=== PATIENT | male | born 1990 | race African-American/Black ===

== ENCOUNTER 2018-06-15 10:27 | Emergency (ER) | payer OTHER ==
--- NOTE | 2018-06-15 11:02 | ER Document Report ---
ED Medical Screen (RME) - General Chief Complaint: Abdominal Pain Stated Complaint: ABDOMINAL PAIN Time Seen by Provider: 06/15/18 10:59 Mode of Arrival: Medic Information source: Patient Notes: 28-year-old male presents to ED for complaint of abdominal pain since Friday he said his worst pain is in the right lower quadrant. He states he was very constipated on Friday he took some mag citrate on Friday because he only had some little hard round balls. States he had several stools yesterday but his pain is still getting worse. Abdomen is soft with very hyperactive bowel sounds throughout. Patient states he has a history of GERD he smokes a half a pack a day does not drink and does not use drugs. I have greeted and performed a rapid initial assessment of this patient. A comprehensive ED assessment and evaluation of the patient, analysis of test results and completion of medical decision making process will be conducted by an additional ED providers. TRAVEL OUTSIDE OF THE [place] IN LAST 30 DAYS: No - Related Data Allergies/Adverse Reactions: Penicillins Allergy (Verified 06/15/18 10:29) Past Medical History - Social History Chew tobacco use (# tins/day): No Frequency of alcohol use: None Drug Abuse: None Renal/ Medical History: Denies: Hx Peritoneal Dialysis GI Medical History: Reports: Hx Gastroesophageal Reflux Disease Physical Exam - Vital signs Vitals: Temp Pulse Resp BP Pulse Ox 98.6 F 98 16 134/89 H 97 06/15/18 10:31 06/15/18 10:31 06/15/18 10:31 06/15/18 10:31 06/15/18 10:31 Course - Vital Signs Vital signs: Temp Pulse Resp BP Pulse Ox 98.6 F 98 16 134/89 H 97 06/15/18 10:31 06/15/18 10:31 06/15/18 10:31 06/15/18 10:31 06/15/18 10:31
[2018-06-15 11:53] LABS: ABSOLUTE EOSINOPHILS # (AUTO) 0.4 10^3/uL (0.0-0.6); ABSOLUTE LYMPHOCYTES (AUTO) 1.8 10^3/uL (0.5-4.7); ABSOLUTE MONOCYTES (AUTO) 0.9 10^3/uL (0.1-1.4); ABSOLUTE NEUT (AUTO) 3.6 10^3/uL (1.7-8.2); BASOPHILS % (AUTO) 0.4 % (0-2); EOSINOPHILS % (AUTO) 5.4 % (0-6); HEMATOCRIT 46.4 % (37.9-51.0); HEMOGLOBIN 15.5 g/dL (13.5-17.0); MEAN CORPUSCULAR HEMOGLOBIN 27.2 pg (27.0-33.4); MEAN CORPUSCULAR HGB CONC 33.3 g/dL (32.0-36.0); MEAN CORPUSCULAR VOLUME 82 fl (80-97); MONOCYTES % (AUTO) 12.7 % (3-13); PLATELET COUNT 139 10^3/uL (150-450); RED BLOOD COUNT 5.67 10^6/uL (4.35-5.55); RED CELL DISTRIBUTION WIDTH 15.6 % (11.5-14.0); SEGMENTED NEUTROPHILS % (AUTO) 54.5 % (42-78); TOTAL CELLS COUNTED % (AUTO) 100 %; WHITE BLOOD COUNT 6.7 10^3/uL (4.0-10.5)
[2018-06-15 11:55] LABS: APPEARANCE,URINE CLEAR; BILIRUBIN,URINE NEGATIVE (NEGATIVE); COLOR,URINE YELLOW; GLUCOSE, URINE NEGATIVE (NEGATIVE); KETONES,URINE NEGATIVE (NEGATIVE); LEUKOCYTE ESTERASE,URINE NEGATIVE (NEGATIVE); NITRITE,URINE NEGATIVE (NEGATIVE); PROTEIN,URINE NEGATIVE (NEGATIVE); URINE SPECIFIC GRAVITY 1.013; UROBILINOGEN,URINE NEGATIVE mg/dL (<2.0)
[2018-06-15 12:14] LABS: ALANINE AMINOTRANSFERASE 129 U/L (21-72); ALBUMIN 4.1 g/dL (3.5-5.0); ALKALINE PHOSPHATASE 97 U/L (38-126); ANION GAP 7 (5-19); ASPARTATE AMINO TRANSFERASE 93 U/L (17-59); BILIRUBIN,DIRECT 0.3 mg/dL (0.0-0.4); BILIRUBIN,TOTAL 0.7 mg/dL (0.2-1.3); BLOOD UREA NITROGEN 8 mg/dL (7-20); CALCIUM 9.5 mg/dL (8.4-10.2); CARBON DIOXIDE 31 mmol/L (22-30); CHLORIDE 105 mmol/L (98-107); GLUCOSE 89 mg/dL (75-110); POTASSIUM 4.5 mmol/L (3.6-5.0); SODIUM 142.6 mmol/L (137-145); TOTAL PROTEIN 7.6 g/dL (6.3-8.2)
--- NOTE | 2018-06-15 12:16 | RADIOLOGY REPORT (SQ) ---
EXAM DESCRIPTION: ACUTE ABDOMEN SERIES COMPLETED DATE/TIME: 06/15/2018 11:58 am REASON FOR STUDY: Generalized abdominal pain with worse pain and rig COMPARISON: None. NUMBER OF VIEWS: Three views. TECHNIQUE: Frontal chest, supine abdomen and upright abdomen radiographic images acquired. LIMITATIONS: None. FINDINGS: CHEST: Lungs clear of infiltrates. Cardiac silhouette size, francisco unremarkable. No pleura l effusions. No pneumothorax. FREE AIR: None. No abnormal gas collections. BOWEL GAS PATTERN: Abnormal bowel gas pattern with air-fluid levels in mildly dilated mid epigastric small bowel loops. This could indicate early ileus or obstruction. Lacey loops from pancreatitis is possible CALCIFICATIONS: No suspicious calcifications. HARDWARE: None in the abdomen. SOFT TISSUES: No gross mass or suggestion of organomegaly. BONES: No acute fracture. No worrisome bone lesions. OTHER: No other significant finding. IMPRESSION: Abnormal but nonspecific bowel gas pattern with mildly dilated small bowel loops in the mid epigastrium with air-fluid levels. TECHNICAL DOCUMENTATION: JOB ID: [id number] [employer]- All Rights Reserved Reading location - IP/workstation name: [email or web address]
--- NOTE | 2018-06-15 12:52 | ER Document Report ---
ED General - General Chief Complaint: Abdominal Pain Stated Complaint: ABDOMINAL PAIN Time Seen by Provider: 06/15/18 10:59 Mode of Arrival: Medic TRAVEL OUTSIDE OF THE [place] IN LAST 30 DAYS: No - HPI Notes: Patient is a 28-year-old male with no significant past medical history aside from GERD who presents to the ED complaining of right lower quadrant abdominal pain times 4 days that has been relatively constant. Patient states that the pain originated in his mid abdomen and was radiating around his right side earlier on. Patient states that the pain no longer radiates. Patient states that he does feel constipated and has only had small amount of stool with each bowel movement with the last one being this morning. Patient states that he is able to eat and drink, but does have a decreased p.o. intake. He is urinating normally. Pt has had an occ cough over the last week. Denies any headache, fever, neck pain, URI, sore throat, chest pain, palpitations, syncope, shortness of breath, wheeze, dyspnea, nausea/vomiting/diarrhea, urinary retention, dysuria, hematuria, back pain, loss of control of bowel or bladder, numbness/tingling, saddle anesthesia, muscle paralysis/weakness, or rash. - Related Data Allergies/Adverse Reactions: Penicillins Allergy (Verified 06/15/18 10:29) Past Medical History - General Information source: Patient - Social History Smoking Status: Current Every Day Smoker Chew tobacco use (# tins/day): No Frequency of alcohol use: None Drug Abuse: None Family History: Reviewed & Not Pertinent Patient has suicidal ideation: No Patient has homicidal ideation: No Renal/ Medical History: Denies: Hx Peritoneal Dialysis GI Medical History: Reports: Hx Gastroesophageal Reflux Disease Review of Systems - Review of Systems -: Yes All other systems reviewed and negative Physical Exam - Vital signs Vitals: Temp Pulse Resp BP Pulse Ox 98.6 F 98 16 134/89 H 97 06/15/18 10:31 06/15/18 10:31 06/15/18 10:31 06/15/18 10:31 06/15/18 10:31 - Notes Notes: PHYSICAL EXAMINATION: GENERAL: Well-appearing, well-nourished and in no acute distress. HEAD: Atraumatic, normocephalic. EYES: Pupils equal round and reactive to light, extraocular movements intact, sclera anicteric, conjunctiva are normal. ENT: Nares patent and without discharge. oropharynx clear without exudates. No tonsilar hypertrophy or erythema. Moist mucous membranes. NECK: Normal range of motion, supple without lymphadenopathy LUNGS: Scant crackle RLL. HEART: Regular rate and rhythm without murmurs, rubs, gallops. ABDOMEN: Soft, nondistended abdomen. No guarding, no rebound. Normal bowel sounds present. No CVA tenderness bilaterally. + tenderness to the RLQ. Dudley neg. Musculoskeletal: FROM to passive/active. Strength 5+/5. Extremities: No cyanosis, clubbing, or edema b/l. Peripheral pulses 2+. Capillary refill less than 3 seconds. NEUROLOGICAL: Normal speech, normal gait. PSYCH: Normal mood, normal affect. SKIN: Warm, Dry, normal turgor, no rashes or lesions noted. Course - Re-evaluation Re-evalutation: 06/15/18 13:18 Patient is an afebrile, well-hydrated, 28-year-old male who presents to the ED with a right lower lobe pneumonia as well as abdominal pain unspecified but I suspect to be related with constipation. Vitals are acceptable without any significant tachycardia, tachypnea, or hypoxia. PE is otherwise unremarkable. Patient is nontoxic-appearing and is tolerating p.o. without difficulty. Appendicitis observation reviewed. CBC and CMP otherwise unremarkable aside from being a little dry. See CT scan result. Patient was given fluids. No further labs or imaging warranted at this time. Low suspicion/risk for acute appendicitis, bowel obstruction, acute cholecystitis, perforated diverticulitis, incarcerated hernia, pancreatitis, perforated ulcer, peritonitis, sepsis, testicular torsion, or other systemic emergent condition at this time. Patient is aware that his condition can change from initial presentation and he needs to monitor symptoms closely and seek medical attention if any acute changes. I will send him home with a prescription for mag citrate and azithromycin. Conservative measures otherwise for symptoms. Recheck with PCM in 2-3 days. Consider consult with a group home counselor. Return to the ED with any worsening/concerning symptoms otherwise as reviewed in discharge. Patient is in agreement. - Vital Signs Vital signs: Temp Pulse Resp BP Pulse Ox 98.6 F 98 16 134/89 H 97 06/15/18 10:31 06/15/18 10:31 06/15/18 10:31 06/15/18 10:31 06/15/18 10:31 - Laboratory Result Diagrams: 06/15/18 11:17 06/15/18 11:17 Laboratory results interpreted by me: 06/15/18 06/15/18 06/15/18 11:17 11:17 11:17 RBC 5.67 H RDW 15.6 H Plt Count 139 L Carbon Dioxide 31 H Creatinine 1.47 H Est GFR (Non-Af Amer) 57 L AST 93 H ALT 129 H Urine Ascorbic Acid 40 H Discharge - Discharge Clinical Impression: Lower abdominal pain, unspecified Right lower lobe pneumonia Qualifiers: Pneumonia type: due to unspecified organism Qualified Code(s): J18.1 - Lobar pneumonia, unspecified organism Condition: Stable Disposition: HOME, SELF-CARE Instructions: Abdominal Pain ([facility]), Observation for Appendicitis ([facility]), Pneumonia ([facility]) Additional Instructions: Maintain adequate fluid intake Take meds as directed tylenol/ibuprofen as needed over the counter cold medication as needed for symptoms Humidified air may help Wash your hands regularly Wear a mask when coughing F/u: with your PCM in 3-5 days for a recheck And consider consult with a group home counselor Return to the ED with any fever, worsening pain, chest pain, palpitations, syncope, worsening BOATENG, neck pain/stiffness, shortness of breath, wheezing, drooling, trouble swallowing/breathing, abdominal pain, n/v/d, rash, or worsening/concerning symptoms otherwise. Prescriptions: Azithromycin [Zithromax 250 mg Tablet] 250 mg PO ASDIR PRN #6 tablet PRN Reason: Magnesium Citrate [Citrate of Magnesia 296 ml Bottle] 296 ml PO ONCE PRN #1 bottle PRN Reason: Forms: Elevated Blood Pressure, Smoking Cessation Education Referrals: HAMZAH FONSECA MD [ACTIVE STAFF] - Follow up as needed
[2018-06-15] MEDS ORDERED: NORMAL SALINE 1000 ML 1,000 ML IV PRN (12:53)
--- NOTE | 2018-06-15 13:14 | RADIOLOGY REPORT (SQ) ---
EXAM DESCRIPTION: CT ABD/PELVIS WITH IV ONLY COMPLETED DATE/TIME: 06/15/2018 1:00 pm REASON FOR STUDY: abd pain, RLQ COMPARISON: None. TECHNIQUE: CT scan of the abdomen and pelvis performed using helical scanning technique with dynamic intravenous contrast injection. No oral contrast. Images reviewed with lung, soft tissue, and bone windows. Reconstructed coronal and sagittal MPR images reviewed. Delayed images for evaluation of the urinary system also acquired. All images stored on PACS. All CT scanners at this facility use dose modulation, iterative reconstruction, and/or weight based d osing when appropriate to reduce radiation dose to as low as reasonably achievable (ALARA). [facility]: Dose Right [facility]: CareDose [facility]: Dose Right [facility]: Teradose 4D [facility]: [employer]ack CONTRAST TYPE AND DOSE: contrast/concentration: Isovue 350.00 mg/ml; Total Contrast Delivered: 100.0 ml; Total Saline Delivered: 70.0 ml RENAL FUNCTION: BUN 8; creatinine 1.47 RADIATION DOSE: . LIMITATIONS: None. FINDINGS: LOWER CHEST: A rounded consolidation is seen at the right lung base. No pleural effusion. The base of the heart is unremarkable. LIVER: Normal size. No masses. No dilated ducts. SPLEEN: Normal size. No focal lesions. PANCREAS: No masses. No significant calcifications. No adjacent inflammation or peripancreatic fluid collections. Pancreatic duct not dilated. GALLBLADDER: No identified stones by CT criteria. No inflammatory changes to suggest cholecystitis. ADRENAL GLANDS: No significant masses or asymmetry. RIGHT KIDNEY AND URETER: No solid masses. No significant calcifications. No hydronephrosis or hyd roureter. LEFT KIDNEY AND URETER: No solid masses. No significant calcifications. No hydronephrosis or hydr oureter. AORTA AND VESSELS: No aneurysm. No dissection. Renal arteries, SMA, celiac without stenosis. RETROPERITONEUM: No retroperitoneal adenopathy, hemorrhage or masses. BOWEL AND PERITONEAL CAVITY: No masses or inflammatory changes. No free fluid or peritoneal masses. APPENDIX: Normal. PELVIS: No mass. No free fluid. Normal bladder. ABDOMINAL WALL: No masses. No hernias. BONES: No significant or acute findings. OTHER: No other significant finding. IMPRESSION: 1. No findings to correlate with the patient's reported right lower quadrant pain. 2. Consolidation at the right lung base most consistent with focal pneumonia. TECHNICAL DOCUMENTATION: JOB ID: [id number] Quality ID # [id number]: Final reports with documentation of one or more dose reduction techniques (e.g., Au tomated exposure control, adjustment of the mA and/or kV according to patient size, use of iterative reconstruction technique) 2010 [employer]- All Rights Reserved Reading location - IP/workstation name: [email or web address]
[2018-06-15 14:26] VITALS: BP 143/88
== END 2018-06-15 14:20 | disposition home or self-care (01) ==
LOC: ER 10:27 → EDBD 10:27 → ER 14:20
DX: J18.1 Lobar pneumonia, unspecified organism (principal); R10.31 Right lower quadrant pain; K21.9 Gastro-esophageal reflux disease without esophagitis; Z88.0 Allergy status to penicillin
CPT/HCPCS: 99285; 96360; 36415; 85025; 80053; 81001; 74022; 74177; J7030

== ENCOUNTER 2019-06-15 17:30 | Emergency (ER) | payer OTHER ==
[2019-06-15] MEDS ORDERED: NORMAL SALINE 1000 ML 1,000 ML IV ONE (17:45)
--- NOTE | 2019-06-15 17:47 | ER Document Report ---
ED Medical Screen (RME) - General Chief Complaint: Syncope Stated Complaint: POSSIBLE SYNCOPE Time Seen by Provider: 06/15/19 17:38 TRAVEL OUTSIDE OF THE [place] IN LAST 30 DAYS: No - HPI Notes: 06/15/19 17:46 29-year-old male to the emergency department with complaints of an episode of syncope this afternoon. Apparently he was in the restroom and passed out while he was on the toilet. He does not particularly remember feeling like he was going to pass out. Of note he has been complaining of cough and shortness of breath for the past 2 weeks. He states that he feels a little bit like he might have a pneumonia. However, the patient does have a history of pulmonary embolus. It was several years ago and he does not currently take any blood thinners. He denies any coagulopathy but is not really sure if he was tested for it. He denies any leg pain or leg swelling. He denies any recent travel. He does not currently have any malignant process. Of note his O2 sat is 87% on room air in triage and his heart rate is in the 120s. I performed a brief medical screening exam on the patient and determined that he will need further management and evaluation by main side provider. I have ordered initial imaging studies as well as lab work. Updated ER attending about the patient. - Related Data Allergies/Adverse Reactions: Penicillins Allergy (Verified 06/15/19 17:40) Past Medical History Renal/ Medical History: Denies: Hx Peritoneal Dialysis GI Medical History: Reports: Hx Gastroesophageal Reflux Disease Physical Exam - Vital signs Vitals: Temp Pulse Resp BP Pulse Ox 98.4 F 122 H 18 130/87 H 87 L 06/15/19 17:38 06/15/19 17:38 06/15/19 17:38 06/15/19 17:38 06/15/19 17:38 Course - Vital Signs Vital signs: Temp Pulse Resp BP Pulse Ox 98.4 F 122 H 18 130/87 H 87 L 06/15/19 17:38 06/15/19 17:38 06/15/19 17:38 06/15/19 17:38 06/15/19 17:38
[2019-06-15] MEDS ORDERED: HEPARIN SOD (PORCINE) 1,000 UNIT/ML 10 ML VIAL IV ONE ×2 (17:57→19:05)
--- NOTE | 2019-06-15 18:02 | ER Document Report ---
ED General - General Chief Complaint: Altered Mental Status Stated Complaint: POSSIBLE SYNCOPE Time Seen by Provider: 06/15/19 17:38 [facility] - Follow up as needed TRAVEL OUTSIDE OF THE [place] IN LAST 30 DAYS: No - HPI Notes: pt has been having inc dyspnea on exertion over few days, no fevers. but today GF says she witnessed him lose consciousness suddenly while just sitting there and he's started to appear obv SOB looking at him. pt says he had a PE dx'd this exact day last year and had concomitant PNA treated at that time. he says doctors didn't really know why he'd had a clot, but he didnt' have to stay on blood thinners for more than month or two he says. he has never felt this sob though. he does also have chest pain that's diffuse and heavy but severe. besides that one LOC (during which he didn't sustain any trauma per GF/witness) he hasn't displayed/had focal neuro deficits or vision change. denies vomiting. denies inhaling any substances. denies hemoptysis, but +nonprod cough. - Related Data Allergies/Adverse Reactions: Penicillins Allergy (Verified 06/15/19 17:40) Past Medical History - General Information source: Patient, Friend, [facility] Records - specifiaclly no h/o VTE or clotting/bleeding disorders - Social History Smoking Status: Current Every Day Smoker Chew tobacco use (# tins/day): No Frequency of alcohol use: None Drug Abuse: None Family History: Reviewed & Not Pertinent Patient has suicidal ideation: No Patient has homicidal ideation: No Renal/ Medical History: Denies: Hx Peritoneal Dialysis GI Medical History: Reports: Hx Gastroesophageal Reflux Disease Review of Systems - Review of Systems Constitutional: See HPI, Malaise, Weakness. denies: Chills, Diaphoresis, Fever, Weight gain, Weight loss, Recent illness EENT: No symptoms reported. denies: Eye pain, Blurred vision, Double vision, Nose congestion, Difficulty swallowing, Throat swelling, Mouth pain, Mouth swelling, Dental problem, Vertigo Cardiovascular: No symptoms reported, Chest pain, Heart racing, Dyspnea, Syncope, Lightheaded. denies: Palpitations, Orthopnea, Paroxysmal Nocturnal Dysp Respiratory: See HPI, Cough, Hurts to breathe, Short of breath. denies: Hemoptysis, Sputum, Stridor, Wheezing Gastrointestinal: No symptoms reported. denies: Abdomen distended, Abdominal pain, Diarrhea, Nausea, Vomiting, Constipation, Blood streaked bowels, Poor appetite, Poor fluid intake, Black stools, Rectal bleeding Genitourinary: No symptoms reported Male Genitourinary: No symptoms reported Musculoskeletal: No symptoms reported Skin: No symptoms reported Hematologic/Lymphatic: No symptoms reported Neurological/Psychological: No symptoms reported, See HPI, Lost consciousness Physical Exam - Vital signs Vitals: Temp Pulse Resp BP Pulse Ox 98.4 F 122 H 18 130/87 H 87 L 06/15/19 17:38 06/15/19 17:38 06/15/19 17:38 06/15/19 17:38 06/15/19 17:38 Interpretation: Normal - Notes Notes: on arrival to trauma bay s/p CTA BP 150/100, HR 111, 93% on 2 L NC. RR 30s. Inc to 3 L for 95% SPO2. bipap ordered. Before this was initiated his blood pressure did go to 109 systolic...looking back in EMR baseline SBP ~ 120s-130s. - HEENT Head: Normocephalic, Atraumatic Eyes: Normal. No: Pale conjunctiva, Periorbital edema, Scleral icterus Conjunctiva: No: Injected, Purulent discharge Extraocular movements intact: Yes Eyelashes: Normal Pupils: PERRL Nerve palsy: No Visual warren normal: Yes Ears: Normal External canal: Normal Nasal: Normal Mouth/Lips: Normal Mucous membranes: Normal Pharynx: Normal. No: Potential airway comprom. Neck: Supple. No: Carotid bruit, Lymphadenopathy, Meningismus, Neck mass, S ubcutaneous emphysema, Thyromegally - Respiratory Respiratory status: Respiratory distress, Labored, Retractions, Tachypnea. No: Tripod position Chest status: Nontender, Pain with cough, Pain with deep breathing, Splinting. No: Chest mass, Ecchymosis Breath sounds: Rhonchi - b/l upper and lower warren Chest palpation: Normal - Cardiovascular Rhythm: Tachycardia Heart sounds: S1 appreciated, S2 appreciated Murmur: No Pulses: Normal: Radial, Dorsalis pedis Normal capillary refill: Yes - Abdominal Inspection: Normal, Obese Distension: No distension. No: Tympanitic, Fluid wave, Distended bladder Tenderness: Nontender Organomegaly: No organomegaly - Back Back: Normal, Nontender - Extremities General upper extremity: Normal inspection, Nontender, Normal color, Normal ROM, Normal temperature. No: Edema General lower extremity: Normal inspection, Nontender, Normal color, Normal ROM, Normal temperature, Normal weight bearing. No: Edema - Neurological Neuro grossly intact: Yes Cognition: Normal Orientation: AAOx4 Margaret Coma Scale Eye Opening: Spontaneous [place] Coma Scale Verbal: Oriented Margaret Coma Scale Motor: Obeys Commands [place] Coma Scale Total: 15 Speech: Normal Motor strength normal: LUE, RUE, LLE, RLE Sensory: Normal - Psychological Associated symptoms: Normal affect, Normal mood - Skin Skin Temperature: Warm Skin Moisture: Dry Skin Color: Normal Course - Re-evaluation Re-evalutation: 06/15/19 19:24 Patient was seen initially in triage and story was very concerning for recurrence of PE--specifically hemodynamically significant PE. I told provider upfront to go ahead and order the heparin even before CTA but he went promptly to CT CTA showed R heart strain, pulmonary artery dilation, acute right pulmonary embolism, possibly chronic left and multiple scattered what appears to be pulmonary infarcts, no pericardial effusion. His EKG was reviewed from 6:38 PM it is sinus tach rate 116, WI 144, QRS 115, axis wnl, QTc 473. No ST e levations depressions no voltage deficits or electrical alternating patterns. Patient was taken to the trauma bay after CT scan BP 150/100, HR 111, 93% on 2 L NC. Increased to 3 L for 95% SPO2. Ordered alteplase 100 milligrams over 2 hrs. Before this was initiated his blood pressure did go to 109 systolic. I instructed to start 250 cc normal saline bolus and have norepinephrine drip started to maintain his systolic pressure over 110 since looking back his baseline blood pressures are 120s 130s. Also spoke with . pulmonary critical care at [facility] at who confirmed in addition to the dose of 100 mg over 2 hours alteplase it was appropriate to start the heparin bolus and infusion at high d ose range. She agreed with the strategy of being very responsive to any drops in blood pressure and starting norepinephrine and 250 cc bolus to maintain over 110 at least. We are continuing to watch blood pressures every 5 to 10 minutes maintain SPO2 over 95%, and keep his blood pressures at least 110 systolic. Troponin: 06/15/19 19:50 Patient did complain of chest pain around 7:45 PM his blood pressures were maintaining without any norepinephrine started at 130 systolic. Still with the name it is 94% on 3 L, pending still the troponin given his new chest pain are now repeating an EKG that will be a little over an hour from his first. This had no changes at all. Will avoid any nitrates or anything that drops his preload. He currently has a heparin infusion going 20:30 Gave 75 fentanyl for some chest pain. RN did say that he actually did "not become somnolent and was easily arousable but did seem to rest his eyes and lean his head back. SPO2 dropped to 85% he was placed on 15 L nonrebreather mask and increased to 92% 06/15/19 20:59 Patient had improvement in his chest pain after the DuoNeb he was starting to have some streaks of blood in his mucus. He has known evidence of pulmonary infarct potentially on his CT bilaterally. Therefore I called the [facility] critical care doc who agreed hold heparin for the transport. On evaluation of the patient again he was back on 3 L nasal cannula 93% and he was currently receiving his second DuoNeb since he felt it did help at first, but this seemed to be making him cough more and his heart rate was 140s. Blood pressure was difficult to obtain and BP were 90s and 100 systolic. Repeated 1 view chest x- ray this showed no change but bilateral pulmonary infiltrates concerning for infarcts. Decided to initiate BiPAP but first hung the nor epi drip which we had not yet needed started at 4 prior to BiPAP initiation he actually improved to 91% SPO2 his heart rate had come down to 112, blood pressure though was still around 100 systolic. After nor epi started at 4, blood pressure 110/80. BiPAP started at 10/5 40% FiO2, RR 18. Increase norepinephrine to 5, 7 to increase blood pressure from 100 systolic to 1 15-120. His SPO2 was not improving after a few minutes increase his FiO2 to 100% patient says he is feeling a lot better after initiation of the BiPAP. After a minute or 2 his SPO2 was 100%. Decreased FiO2 to 70%. At time of transfer looked at actual output of hemoptysis and is at 200 cc. Patient's blood pressure is 120s over 90 on 5 norepinephrine, 10/5 BiPAP, 70% still he is at 99% flight team is to ensure blood pressure stays over 100 systolic and his sats stay over 95%. They understand he has right heart strain and pulmonary infarct and that he would be very tenuous to intubate so it is paramount to maintain his hemodynamic parameters otherwise. - Vital Signs Vital signs: Temp Pulse Resp BP Pulse Ox 98.5 F 130 H 25 H 120/94 H 98 06/15/19 20:30 06/15/19 21:06 06/15/19 21:38 06/15/19 21:38 06/15/19 21:38 - Laboratory Result Diagrams: 06/15/19 17:57 06/15/19 17:57 Laboratory results interpreted by me: 06/15/19 06/15/19 06/15/19 17:57 17:57 17:57 WBC 15.4 H RBC 5.84 H RDW 16.4 H Absolute Neuts (auto) 11.5 H Creatinine 1.64 H Est GFR (MDRD) Non-Af 50 L Lactic Acid NT-Pro-B Natriuret Pep 52438 H 06/15/19 19:11 WBC RBC RDW Absolute Neuts (auto) Creatinine Est GFR (MDRD) Non-Af Lactic Acid 2.3 H NT-Pro-B Natriuret Pep - Diagnostic Test Radiology reviewed: Image reviewed, Reports reviewed Critical Care Note - Critical Care Note Total time excluding time spent on procedures (mins): 120 Discharge - Discharge Clinical Impression: Right heart failure due to pulmonary hypertension, Pulmonary embolism and infarction, Hemoptysis, Altered cardiopulmonary tissue perfusion, Acute right heart failure Condition: Critical Disposition: [facility] Admitting Provider: vladimir STOLL at [facility]errals: [facility] [[facility]] - Follow up as needed
[2019-06-15 18:19] LABS: ABSOLUTE BASOPHILS # (AUTO) 0.1 10^3/uL (0.0-0.2); ABSOLUTE EOSINOPHILS # (AUTO) 0.1 10^3/uL (0.0-0.6); ABSOLUTE LYMPHOCYTES (AUTO) 2.3 10^3/uL (0.5-4.7); ABSOLUTE MONOCYTES (AUTO) 1.4 10^3/uL (0.1-1.4); ABSOLUTE NEUT (AUTO) 11.5 10^3/uL (1.7-8.2); BASOPHILS % (AUTO) 0.7 % (0-2); EOSINOPHILS % (AUTO) 0.6 % (0-6); HEMOGLOBIN 16.4 g/dL (13.5-17.0); LYMPHOCYTES % (AUTO) 14.7 % (13-45); MEAN CORPUSCULAR HEMOGLOBIN 28.2 pg (27.0-33.4); MEAN CORPUSCULAR HGB CONC 33.6 g/dL (32.0-36.0); MEAN CORPUSCULAR VOLUME 84 fl (80-97); MONOCYTES % (AUTO) 9.4 % (3-13); PLATELET COUNT 153 10^3/uL (150-450); RED BLOOD COUNT 5.84 10^6/uL (4.35-5.55); RED CELL DISTRIBUTION WIDTH 16.4 % (11.5-14.0); SEGMENTED NEUTROPHILS % (AUTO) 74.6 % (42-78); TOTAL CELLS COUNTED % (AUTO) 100 %; WHITE BLOOD COUNT 15.4 10^3/uL (4.0-10.5)
[2019-06-15 18:25] LABS: INTERNATIONAL RATION (INR) 1.09; PROTHROMBIN TIME 14.1 SEC (11.4-15.4)
[2019-06-15 18:26] LABS: PARTIAL THROMBOPLASTIN TIME 27.2 SEC (23.5-35.8)
--- NOTE | 2019-06-15 18:32 | RADIOLOGY REPORT (SQ) ---
EXAM DESCRIPTION: CTA CHEST COMPLETED DATE/TIME: 06/15/2019 6:10 pm REASON FOR STUDY: syncope, SOB, hx of PE, hypoxia, tachycardia COMPARISON: None. TECHNIQUE: CT scan of the chest performed using helical scanning technique with dynamic intravenous contrast injection. Images reviewed with lung, soft tissue and bone windows. Reconstructed coronal and sagittal MPR images reviewed. Additional 3 dimensional post-processing performed to develop Maximal Intensity Projection images (MS P). All images stored on PACS. All CT scanners at this facility use dose modulation, iterative reconstruction, and/or weight based d osing when appropriate to reduce radiation dose to as low as reasonably achievable (ALARA). [facility]: Dose Right [facility]: CareDose [facility]: Dose Right [facility]: Teradose 4D [facility]: Autrement (HotelHotel) CONTRAST TYPE AND DOSE: contrast/concentration: Isovue 350.00 mg/ml; Total Contrast Delivered: 71.0 ml; Total Saline Delivered: 67.0 ml Contrast bolus optimized for the pulmonary arteries. Not diagnostic for the aorta. RENAL FUNCTION: None required. The patient is less than 50 years old. RADIATION DOSE: CT Rad equipment meets quality standard of care and radiation dose reduction techniq ues were employed. CTDIvol: 21.1 - 26.4 mGy. DLP: 769 mGy-cm. . LIMITATIONS: None. FINDINGS: LUNGS AND PLEURA: I have airspace consolidation present within the left upper lobe, right upper lobe, right middle lobe as well as the right lower lobe. No pleural effusion at this time AORTA AND GREAT VESSELS: No aneurysm. Contrast bolus not optimized for the aorta. HEART: There is enlargement of the right ventricle with some inward bowing of the septum, consistent with right heart strain. No pericardial fluid at this time. PULMONARY ARTERIES: The main pulmonary artery is significantly enlarged measuring up to 4 cm in maxim um diameter. There is a large acute embolus within the left pulmonary artery with multiple smaller e mboli shower throughout the left upper and lower lobe branches. There is a large chronic appearing e mbolus in the right main pulmonary artery with multiple smaller emboli shower to throughout the right upper and lower lobe branches. HILAR AND MEDIASTINAL STRUCTURES: No identified masses or abnormal nodes. HARDWARE: None in the chest. UPPER ABDOMEN: No significant findings. Limited exam. THYROID AND OTHER SOFT TISSUES: No masses. No adenopathy. BONES: No acute or significant finding. 3D MIPS: Confirm above findings. OTHER: No other significant finding. IMPRESSION: Acute pulmonary embolus in the left pulmonary artery with multiple shower and smaller em boli throughout the left and right upper and lower lobe branches. Chronic appearing pulmonary embolu s in the right pulmonary artery. The main pulmonary artery is markedly enlarged measuring up to 4 cm in diameter. The right ventricle is also enlarged with some inward bowing of the ventricular septum , consistent with right heart strain. Bilateral airspace consolidations likely represent developing lung infarcts. COMMENT: Pertinent findings on the imaging study reported as a CRITICAL RESULT to Dr. Sotomayor At1 8:20 on 06/15/2019. Category of Critical Result: 1 Quality ID # [id number]: Final reports with documentation of one or more dose reduction techniques (e.g., Au tomated exposure control, adjustment of the mA and/or kV according to patient size, use of iterative reconstruction technique) TECHNICAL DOCUMENTATION: JOB ID: [id number] [employer]- All Rights Reserved Reading location - IP/workstation name: [email or web address]
[2019-06-15 18:41] LABS: ALBUMIN 3.9 g/dL (3.5-5.0); ALKALINE PHOSPHATASE 75 U/L (38-126); ANION GAP 11 (5-19); ASPARTATE AMINO TRANSFERASE 30 U/L (17-59); BILIRUBIN,DIRECT 0.3 mg/dL (0.0-0.4); BILIRUBIN,TOTAL 1.3 mg/dL (0.2-1.3); BLOOD UREA NITROGEN 16 mg/dL (7-20); CALCIUM 9.3 mg/dL (8.4-10.2); CARBON DIOXIDE 26 mmol/L (22-30); CHLORIDE 102 mmol/L (98-107); GLUCOSE 109 mg/dL (75-110); POTASSIUM 3.8 mmol/L (3.6-5.0); TOTAL PROTEIN 7.1 g/dL (6.3-8.2)
[2019-06-15] MEDS ORDERED: ALTEPLASE INJ 100 MG VIAL IV ONE (18:42)
[2019-06-15] MEDS ORDERED: HEPARIN SODIUM,PORCINE/D5W 25,000 UNIT/250 ML RTUINJ IV PRN (19:05)
[2019-06-15] MEDS ORDERED: DEXTROSE 5%-WATER 250 ML with NOREPINEPHRINE BITARTRATE 4 MG IV PRN ×4 (19:08→19:21)
[2019-06-15] MEDS ORDERED: NORMAL SALINE 250 ML IV ONE (19:14)
[2019-06-15] MEDS ORDERED: ONDANSETRON HCL INJ/PF 4 MG/2 ML SDV IV ONE (19:14)
[2019-06-15] MEDS ORDERED: IPRATROPIUM/ALBUTEROL 0.5-2.5 MG/3 ML AMPUL NEB ONE ×3 (19:42→20:56)
--- NOTE | 2019-06-15 20:18 | EKG REPORT ---
SEVERITY:- ABNORMAL ECG - SINUS TACHYCARDIA PROBABLE LEFT ATRIAL ABNORMALITY LEFT POSTERIOR FASCICULAR BLOCK ABNORMAL T, CONSIDER ISCHEMIA, INFERIOR LEADS BORDERLINE PROLONGED QT INTERVAL : Confirmed by: Dodie Martinez MD 15-Jun-2019 20:18:06
[2019-06-15] MEDS ORDERED: FENTANYL CITRATE INJ/PF 100 MCG/2 ML AMPUL IV ONE (20:29)
[2019-06-15] MEDS ORDERED: NOREPINEPHRINE BITARTRATE INJ/PF 4 MG/4 ML SDV IV ONE (20:57)
[2019-06-15] MEDS ORDERED: HEPARIN SOD (PORCINE) 1,000 UNIT/ML 10 ML VIAL IV PRN (20:58)
--- NOTE | 2019-06-15 21:48 | RADIOLOGY REPORT (SQ) ---
EXAM DESCRIPTION: XR CHEST 1 VIEW COMPLETED DATE/TME: 06/15/2019 20:57 CLINICAL HISTORY: worsening sob COMPARISON: CT performed the same day FINDINGS: Blunted right costophrenic angle compatible with pleural fluid. Abnormal parenchymal opacity at the left upper lung and right mid lung could be secondary to an infectious process. EKG leads project over the chest. There is no pneumothorax. IMPRESSION: Abnormal parenchymal opacities at the left upper lung and right mid lung could be secondary to an infectious process. Recommend follow-up. Blunted right costophrenic angle could secondary to a combination of pleural fluid and pleural thickening.
[2019-06-15 21:49] VITALS: BP 120/94
== END 2019-06-15 21:55 | disposition short-term general hospital (02) ==
LOC: ER 17:30
DX: I26.99 Other pulmonary embolism without acute cor pulmonale (principal); I50.9 Heart failure, unspecified; I11.0 Hypertensive heart disease with heart failure; R41.82 Altered mental status, unspecified; R06.02 Shortness of breath; F17.200 Nicotine dependence, unspecified, uncomplicated; R04.2 Hemoptysis; R53.81 Other malaise; R53.1 Weakness; Z86.711 Personal history of pulmonary embolism
CPT/HCPCS: 93005; 96376; 94640 ×2; 99285; 96375; 96365; 96367; 36415; 87040; 83605; 85025; 85610; 85730; 80053; 84484; 83880; 71045; 71275; 93010; 94660; J1644 ×2; J3010; J3490; J2997; J2405; J7060; J7620

== ENCOUNTER 2019-12-25 23:35 | Observation (INO) | payer OTHER ==
--- NOTE | 2019-12-26 00:40 | ER Document Report ---
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 Patient reports shortness of breath increasing over the last week as well. Recently finished a trip on his motorcycle to [place]. Patient states he has had some dyspnea intermittently since May which she believes are secondary to the blood clots. He does follow with a peer health promoter. PHYSICAL EXAMINATION: Patient does not become dyspneic with speaking lung sounds are decreased in the bases but otherwise clear to auscultation. Patient with 2+ pitting edema bilateral lower extremities I have greeted and performed a rapid initial assessment of this patient. A comprehensive ED assessment and evaluation of the patient, analysis of test results and completion of medical decision making process will be conducted by an additional ED providers. TRAVEL OUTSIDE OF THE [place] IN LAST 30 DAYS: No - Related Data Allergies/Adverse Reactions: Penicillins Allergy (Verified 07/28/19 14:33) Past Medical History Renal/ Medical History: Denies: Hx Peritoneal Dialysis GI Medical History: Reports: Hx Gastroesophageal Reflux Disease Physical Exam - Vital signs Vitals: Temp Pulse Resp BP Pulse Ox 97.6 F 95 20 138/103 H 95 12/25/19 23:59 12/25/19 23:59 12/25/19 23:59 12/25/19 23:59 12/25/19 23:59 Course - Vital Signs Vital signs: Temp Pulse Resp BP Pulse Ox 97.6 F 95 20 138/103 H 95 12/25/19 23:59 12/25/19 23:59 12/25/19 23:59 12/25/19 23:59 12/25/19 23:59 Doctor's Discharge - Discharge Referrals: LIVIA CAMARGO [Primary Care Provider] - Follow up as needed
[2019-12-26 01:06] LABS: ABSOLUTE BASOPHILS # (AUTO) 0.1 10^3/uL (0.0-0.2); ABSOLUTE EOSINOPHILS # (AUTO) 0.3 10^3/uL (0.0-0.6); ABSOLUTE LYMPHOCYTES (AUTO) 2.6 10^3/uL (0.5-4.7); ABSOLUTE MONOCYTES (AUTO) 0.5 10^3/uL (0.1-1.4); ABSOLUTE NEUT (AUTO) 2.4 10^3/uL (1.7-8.2); BASOPHILS % (AUTO) 1.1 % (0-2); EOSINOPHILS % (AUTO) 5.4 % (0-6); HEMATOCRIT 48.2 % (37.9-51.0); HEMOGLOBIN 16.2 g/dL (13.5-17.0); LYMPHOCYTES % (AUTO) 43.8 % (13-45); MEAN CORPUSCULAR HEMOGLOBIN 29.2 pg (27.0-33.4); MEAN CORPUSCULAR HGB CONC 33.6 g/dL (32.0-36.0); MEAN CORPUSCULAR VOLUME 87 fl (80-97); PLATELET COUNT 163 10^3/uL (150-450); RED BLOOD COUNT 5.54 10^6/uL (4.35-5.55); RED CELL DISTRIBUTION WIDTH 17.4 % (11.5-14.0); SEGMENTED NEUTROPHILS % (AUTO) 40.7 % (42-78); TOTAL CELLS COUNTED % (AUTO) 100 %
[2019-12-26 01:15] LABS: INTERNATIONAL RATION (INR) 1.29; PROTHROMBIN TIME 16.2 SEC (11.4-15.4)
[2019-12-26 01:20] LABS: APPEARANCE,URINE CLEAR; BILIRUBIN,URINE NEGATIVE (NEGATIVE); COLOR,URINE YELLOW; GLUCOSE, URINE NEGATIVE (NEGATIVE); KETONES,URINE NEGATIVE (NEGATIVE); LEUKOCYTE ESTERASE,URINE NEGATIVE (NEGATIVE); NITRITE,URINE NEGATIVE (NEGATIVE); PROTEIN,URINE 100 mg/dL (NEGATIVE); URINE SPECIFIC GRAVITY 1.026
[2019-12-26 01:24] LABS: ALBUMIN 3.7 g/dL (3.5-5.0); ALKALINE PHOSPHATASE 62 U/L (38-126); ANION GAP 6 (5-19); ASPARTATE AMINO TRANSFERASE 40 U/L (17-59); BILIRUBIN,TOTAL 0.9 mg/dL (0.2-1.3); BLOOD UREA NITROGEN 22 mg/dL (7-20); CALCIUM 8.9 mg/dL (8.4-10.2); CARBON DIOXIDE 24 mmol/L (22-30); CHLORIDE 110 mmol/L (98-107); GLUCOSE 90 mg/dL (75-110); POTASSIUM 4.5 mmol/L (3.6-5.0); TOTAL PROTEIN 6.2 g/dL (6.3-8.2)
[2019-12-26 01:36] LABS: NT PRO BNP 4280 pg/mL (<125); TROPONIN I < 0.012 ng/mL
--- NOTE | 2019-12-26 01:50 | RADIOLOGY REPORT (SQ) ---
CLINICAL INDICATION: sob. TECHNIQUE: A single portable AP view was obtained of the chest at 0122 hours. COMPARISON: June 15, 2019. FINDINGS: The cardiomediastinal silhouette is enlarged. The lungs demonstrate right basilar airspace and pleural disease. Left lung is clear. The visualized bones are unremarkable. IMPRESSION: No evidence of active intrathoracic disease. Chronic change, no adverse change
--- NOTE | 2019-12-26 02:25 | RADIOLOGY REPORT (SQ) ---
CLINICAL INDICATION: SOB with PE hx. . TECHNIQUE: CT arteriography was obtained of the chest with multiplanar MIP and/or 3-D angiographic reconstructions. This exam was performed according to our departmental dose-optimization program, which includes automated exposure control, adjustment of the mA and/or kV according to patient size and/or use of iterative reconstruction techniques. Undocumented cc of Omnipaque 300 administered intravenously without complication. COMPARISON: None. CORRELATION: None. FINDINGS: Adequate contrast bolus. Average Hounsfield unit measurement within main pulmonary artery segment of 310. Artifact from venous opacification. There is no evidence of acute pulmonary embolus. Filling defects bilaterally similar to Cb likely presenting chronic remodeled embolic change. No adverse change Prominence of main pulmonary artery segment of 3.8 cm, suspicious for pulmonary artery hypertension. This is similar to prior Thoracic aorta is of normal caliber. The heart is prominent. No pericardial effusion. No bulky mediastinal adenopathy. The lungs demonstrate chronic change.. Scarring right middle lobe, similar to prior. Improved aeration when compared to prior. Pleural-based nodule right lower lobe, stable Visualized abdominal contents are unremarkable. Visualized bones are unremarkable. IMPRESSION: No acute pulmonary process identified. 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 There is no adverse change. Improved aeration when compared to prior. .
[2019-12-26] MEDS ORDERED: FUROSEMIDE INJ/PF 20 MG/2 ML SDV IV ONE (04:17)
--- NOTE | 2019-12-26 04:29 | ER Document Report ---
Entered by KETAN HERRERA SCRIBE 12/26/19 0405 Acting as scribe for:LOUIE EMMANUEL IV, MD ED General - General Chief Complaint: Edema Stated Complaint: POSSIBLE BLOOD CLOTS Time Seen by Provider: 12/26/19 00:37 Primary Care Provider: RAMAN,LIVIA [Primary Care Provider] - Follow up as needed Mode of Arrival: Ambulatory Information source: Patient Notes: This 29 year old male patient with a history of right heart failure, DVT, and PE on Eliquis 5 mg BID presents to the ED today with complaints of bilateral lower extremity swelling for the past x4 days, worse today. Patient states that he noticed the swelling prior to travelling to [place] via motorcycle x4 days ago. He states that he elevated his feet multiple times since onset and the swelling would resolve; however, it returned after his arrival back to [place], so he decided to come to the ED for evaluation. He also notes shortness of breath with exertion. Denies any chest pain. He states that he has been compliant with the Eliquis, but he missed his second dose today because he was here. He reports that he is following up with a boom truck driver some time this month and that he is supposed to have an Echo done this month as well. TRAVEL OUTSIDE OF THE [place] IN LAST 30 DAYS: No - Related Data Allergies/Adverse Reactions: Penicillins Allergy (Verified 07/28/19 14:33) Past Medical History - General Information source: Patient - Social History Smoking Status: Current Every Day Smoker Cigarette use (# per day): Yes Chew tobacco use (# tins/day): No Smoking Education Provided: No Frequency of alcohol use: None Drug Abuse: None Family History: Reviewed & Not Pertinent Patient has suicidal ideation: No Patient has homicidal ideation: No - Past Medical History Cardiac Medical History: Reports: Hx Congestive Heart Failure, Hx DVT, Hx Pulmonary Embolism GI Medical History: Reports: Hx Gastroesophageal Reflux Disease Review of Systems - Review of Systems Constitutional: No symptoms reported EENT: No symptoms reported Cardiovascular: See HPI. denies: Chest pain Respiratory: See HPI, Short of breath Gastrointestinal: No symptoms reported Genitourinary: No symptoms reported Male Genitourinary: No symptoms reported Musculoskeletal: See HPI, Leg swelling Skin: No symptoms reported Hematologic/Lymphatic: No symptoms reported Neurological/Psychological: No symptoms reported -: Yes All other systems reviewed and negative Physical Exam - Vital signs Vitals: Temp Pulse Resp BP Pulse Ox 97.6 F 95 20 138/103 H 95 12/25/19 23:59 12/25/19 23:59 12/25/19 23:59 12/25/19 23:59 12/25/19 23:59 - General General appearance: Alert In distress: None - HEENT Head: Normocephalic, Atraumatic Eyes: Normal Pupils: PERRL - Respiratory Respiratory status: No respiratory distress Chest status: Nontender Breath sounds: Normal Chest palpation: Normal - Cardiovascular Rhythm: Regular Heart sounds: Normal auscultation Murmur: No Friction rub: No Gallop: None auscultated - Abdominal Inspection: Normal Distension: No distension Bowel sounds: Normal Tenderness: Nontender - Abdomen soft Organomegaly: No organomegaly - Back Back: Normal, Nontender - Extremities General upper extremity: Normal inspection General lower extremity: Edema - +1 pitting edema to lower extremities bilaterally - Neurological Neuro grossly intact: Yes Orientation: AAOx4 [place] Coma Scale Eye Opening: Spontaneous [place] Coma Scale Verbal: Oriented [place] Coma Scale Motor: Obeys Commands [place] Coma Scale Total: 15 - Psychological Associated symptoms: Normal affect, Normal mood - Skin Skin Temperature: Warm Skin Moisture: Dry Skin Color: Normal Course - Re-evaluation Re-evalutation: 12/26/19 04:25 Results of ED MSE discussed with patient and patient's significant other. Patient was informed that the hospitalist will be consulted for input in terms of further medical management of patient's apparent heart failure. - Vital Signs Vital signs: Temp Pulse Resp BP Pulse Ox 97.6 F 95 21 H 144/92 H 95 12/25/19 23:59 12/25/19 23:59 12/26/19 05:01 12/26/19 05:00 12/26/19 05:01 - Laboratory Result Diagrams: 12/26/19 00:50 12/26/19 00:50 Laboratory results interpreted by me: 12/26/19 12/26/19 12/26/19 00:50 00:50 00:50 RDW 17.4 H Seg Neutrophils % 40.7 L PT 16.2 H Chloride 110 H BUN 22 H Creatinine 1.53 H Est GFR (MDRD) Non-Af 54 L NT-Pro-B Natriuret Pep Total Protein 6.2 L Urine Protein Urine Urobilinogen 12/26/19 12/26/19 00:50 00:50 RDW Seg Neutrophils % PT Chloride BUN Creatinine Est GFR (MDRD) Non-Af NT-Pro-B Natriuret Pep 4280 H Total Protein Urine Protein 100 H Urine Urobilinogen 4.0 H - Diagnostic Test Radiology reviewed: Reports reviewed - 00 we will add - EKG Interpretation by Me Additional EKG results interpreted by me: 12/26/19 04:26 EKG obtained on 12/26/2019 at 00 03 hours was interpreted by this MD. Findings sinus rhythm, rate 87, right axis deviation is present, QRS complex appears narrow, there are no obvious patterns of ST elevation or depression seen to suggest acute myocardial ischemia or infarction. Impression sinus rhythm with right axis deviation and nonspecific ST segments. - Consults dr. murphy Time consulted: 04:27 Reason for consultation: 12/26/19 04:27 chf exacerbation Consulted provider: will come to ER Discharge - Discharge Clinical Impression: CHF (congestive heart failure) Qualifiers: Heart failure type: unspecified Heart failure chronicity: unspecified Qualified Code(s): I50.9 - Heart failure, unspecified Condition: Stable Disposition: ADMITTED OBSERVATION Admitting Provider: Marcie (Hospitalist) Unit Admitted: Medical Floor [facility]: [facility] [[facility]] - Follow up as needed I personally performed the services described in the documentation, reviewed and edited the documentation which was dictated to the scribe in my presence, and it accurately records my words and actions.
[2019-12-26] MEDS ORDERED: ACETAMINOPHEN 325 MG TABLET PO PRN (05:05)
[2019-12-26] MEDS ORDERED: ONDANSETRON HCL INJ/PF 4 MG/2 ML SDV IV PRN (05:05)
[2019-12-26] MEDS ORDERED: PROMETHAZINE HCL INJ 25 MG/1 ML VIAL IV PRN (05:05)
[2019-12-26] MEDS ORDERED: OXYCODONE-ACETAMINOPHEN 5-325 MG TABLET PO PRN (05:05)
[2019-12-26] MEDS ORDERED: IPRATROPIUM/ALBUTEROL 0.5-2.5 MG/3 ML AMPUL NEB PRN (05:05)
[2019-12-26] MEDS ORDERED: MAGNESIUM HYDROXIDE SUSP 30 ML UDCUP PO PRN (05:05)
[2019-12-26] MEDS ORDERED: HYDRALAZINE HCL INJ/PF 20 MG/1 ML SDV IV PRN (05:18)
--- NOTE | 2019-12-26 06:11 | PDOC H&P ---
History of Present Illness Admission Date/PCP: [facility] History of Present Illness: TAYO Barlow JARVIS II is a 29 year old male past medical history of untreated hypertension, untreated CKD, untreated right heart failure, DVT, recurrent PE who is currently on 5 mg Eliquis p.o. twice daily, presenting to ED complaining of worsening of dyspnea on exertion, bilateral lower extremity swelling recently. Patient has tried elevating his legs multiple times in the past and the swelling has usually resolved, however this time it has remained persistent. Patient denies any orthopnea or paroxysmal nocturnal dyspnea however states that he cannot do much without getting short of breath. He denies any personal or family history of CAD, denies any history of recreational drug abuse. Denies any headache, vision changes, lightheadedness, palpitation, nausea, vomiting, chest pain, abdominal pain, diarrhea, constipation or any urinary symptoms. Patient reports compliant with his anticoagulants. Stating that he has an appointment with his health program director and he is also scheduled to have a 2D echo done. In ED a repeat CTA showed no acute pulmonary process, multiple chronic filling defects are seen, consistent with old recanalized thrombus. Past Medical History Cardiac Medical History: Reports: Congestive Heart Failure, DVT, Pulmonary Embolism GI Medical History: Reports: Gastroesophageal Reflux Disease Social History Smoking Status: Current Every Day Smoker Electronic Cigarette use?: No Family History Family History: Reviewed & Not Pertinent Parental Family History Reviewed: Yes Children Family History Reviewed: Yes Sibling(s) Family History Reviewed.: Yes Medication/Allergy Home Medications: Azithromycin [Zithromax 250 mg Tablet] 250 mg PO ASDIR PRN #6 tablet 06/15/18 Magnesium Citrate [Citrate of Magnesia 296 ml Bottle] 296 ml PO ONCE PRN #1 bottle 06/15/18 Allergies/Adverse Reactions: Penicillins Allergy (Verified 07/28/19 14:33) Review of Systems Review of Systems: as per hpi Physical Exam Vital Signs: Temp Pulse Resp BP Pulse Ox 97.6 F 95 21 H 144/92 H 95 12/25/19 23:59 12/25/19 23:59 12/26/19 05:01 12/26/19 05:00 12/26/19 05:01 Intake & Output 12/24/19 12/25/19 12/26/19 06:59 06:59 06:59 Weight 112.5 kg General appearance: PRESENT: no acute distress, obese Head exam: PRESENT: atraumatic, normocephalic Respiratory exam: PRESENT: clear to auscultation eusebia. ABSENT: rales, rhonchi, wheezes Cardiovascular exam: PRESENT: RRR. ABSENT: diastolic murmur, rubs, systolic murmur GI/Abdominal exam: PRESENT: normal bowel sounds, soft. ABSENT: distended, guarding, mass, organolmegaly, rebound, tenderness Extremities exam: PRESENT: full ROM, +1 edema. ABSENT: calf tenderness, clubbing, pedal edema Neurological exam: PRESENT: alert, awake, oriented to person, oriented to place, oriented to time, oriented to situation, CN II-XII grossly intact. ABSENT: motor sensory deficit Results Laboratory Results: 12/26/19 00:50 12/26/19 00:50 12/26/19 12/26/19 12/26/19 00:50 00:50 00:50 WBC 6.0 RBC 5.54 Hgb 16.2 Hct 48.2 MCV 87 MCH 29.2 MCHC 33.6 RDW 17.4 H Plt Count 163 Seg Neutrophils % 40.7 L Sodium 140.2 Potassium 4.5 Chloride 110 H Carbon Dioxide 24 Anion Gap 6 BUN 22 H Creatinine 1.53 H Est GFR ( Amer) > 60 Glucose 90 Calcium 8.9 Total Bilirubin 0.9 AST 40 Alkaline Phosphatase 62 Total Protein 6.2 L Albumin 3.7 Urine Color YELLOW Urine Appearance CLEAR Urine pH 6.0 Ur Specific [place] 1.026 Urine Protein 100 H Urine Glucose (UA) NEGATIVE Urine Ketones NEGATIVE Urine Blood NEGATIVE Urine Nitrite NEGATIVE Ur Leukocyte Esterase NEGATIVE Urine WBC (Auto) 3 Urine RBC (Auto) 2 12/26/19 00:50 Troponin I < 0.012 NT-Pro-B Natriuret Pep 4280 H Impressions: Chest X-Ray 12/26/19 00:38 IMPRESSION: No evidence of active intrathoracic disease. Chronic change, no adverse change Chest/Abdomen CTA 12/26/19 00:38 IMPRESSION: No acute pulmonary process identified. 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 There is no adverse change. Improved aeration when compared to prior. . Assessment and Plan - Diagnosis (1) CHF (congestive heart failure), NYHA class II Qualifiers: Congestive heart failure type: diastolic Congestive heart failure chronicity: acute on chronic Qualified Code(s): I50.33 - Acute on chronic diastolic (congestive) heart failure Is this a current diagnosis for this admission?: Yes Plan: Denies any personal or family history of CAD. Denies any history of cocaine abuse. This is likely a consequence of recurrent PE with severe pulmonary hypertension. Patient has never had an echo. Does not see a optical engineering manager. Will order 2D echo. Consult optical engineering manager. Cardiac diet, IV diuretics guided by renal function, strict in and out. Can be started on beta-blockers once patient is euvolemic. If systolic dysf unction by Echo, pt can benefit from a JACEY/ARB but need take his CKD into consideration. (2) CKD (chronic kidney disease) Qualifiers: Chronic kidney disease stage: stage 2 (mild) Qualified Code(s): N18.2 - Chronic kidney disease, stage 2 (mild) Is this a current diagnosis for this admission?: Yes Plan: Nonoliguric. Likely due to chronic untreated hypertension. Monitor electrolytes and volume status. Avoid nephrotoxic meds. Will obtain ultrasound, UA, urine protein and creatinine. (3) HTN (hypertension) Qualifiers: Hypertension type: essential hypertension Qualified Code(s): I10 - Essential (primary) hypertension Is this a current diagnosis for this admission?: Yes Plan: History of chronic untreated hypertension. Continue beta-blockers, continue diuretics. Consider JACEY/ARB once kidney function stabilizes. Monitor vitals. Adjust meds as needed. (4) History of pulmonary embolus (PE) Is this a current diagnosis for this admission?: Yes Plan: History of recurrent pulmonary embolus. Patient denies any family history of PE or DVT. Patient attributes his recurrent pulmonary embolus to surgery he had for pilonidal cyst for which he was hospitalized for extended period of time. Currently on Eliquis 5 mg p.o. twice daily. (5) Tobacco abuse Is this a current diagnosis for this admission?: Yes Plan: Counseled on quitting. NicoDerm patch will be provided. (6) Obesity (BMI 30-39.9) Is this a current diagnosis for this admission?: Yes Plan: Diet and lifestyle modification recommended. Will obtain TSH and lipid panel.
[2019-12-26 06:39] LABS: CHOLESTEROL 109.74 mg/dL (0-200); TRIGLYCERIDES 111 mg/dL (<150)
[2019-12-26 06:49] LABS: DIRECT LDL 64 mg/dL (<100)
[2019-12-26 07:23] LABS: FREE T4 (FREE THYROXINE) 1.11 ng/dL (0.78-2.19)
[2019-12-26 07:37] LABS: THYROID STIMULATING HORMONE 1.35 uIU/mL (0.47-4.68)
[2019-12-26 07:44] LABS: URINE CREATININE 8.5 mg/dL (24-392); URINE PROTEIN 11.7 mg/dL (<12)
[2019-12-26] MEDS ORDERED: FUROSEMIDE INJ/PF 20 MG/2 ML SDV IV SCH (10:00)
[2019-12-26] MEDS: FAMOTIDINE 20 MG TABLET PO SCH ×2 (10:22→21:36)
[2019-12-26] MEDS: CARVEDILOL 3.125 MG TABLET PO SCH ×2 (10:23→21:36)
[2019-12-26] MEDS: APIXABAN 5 MG TABLET PO SCH ×2 (10:24→17:37)
[2019-12-26] MEDS: FUROSEMIDE INJ/PF 20 MG/2 ML SDV IV SCH ×2 (10:24→21:37)
[2019-12-26] MEDS: DOCUSATE SODIUM 100 MG/10 ML UDC PO SCH (10:25)
[2019-12-26] MEDS ORDERED: CYCLOBENZAPRINE HCL 10 MG TABLET PO ONE (11:54)
[2019-12-26 12:37] LABS: URINE AMPHETAMINES SCREEN NEGATIVE; URINE BARBITURATES SCREEN NEGATIVE; URINE BENZODIAZEPINES SCREEN NEGATIVE; URINE COCAINE SCREEN NEGATIVE; URINE MARIJUANA (THC) SCREEN NEGATIVE; URINE METHADONE SCREEN NEGATIVE; URINE PHENCYCLIDINE SCREEN NEGATIVE
[2019-12-26 13:23] LABS: ANION GAP 8 (5-19); BLOOD UREA NITROGEN 19 mg/dL (7-20); CALCIUM 9.4 mg/dL (8.4-10.2); CARBON DIOXIDE 27 mmol/L (22-30); CHLORIDE 104 mmol/L (98-107); GLUCOSE 90 mg/dL (75-110); POTASSIUM 4.2 mmol/L (3.6-5.0)
--- NOTE | 2019-12-26 14:38 | Progress Note ---
Provider Note Provider Note: TAYO Barlow JARVIS II is a 29 year old male past medical history of untreated hypertension, untreated CKD, untreated right heart failure, DVT, recurrent PE who was admitted early this morning by the director systems for CHF exacerbation. H&P, overnight events, vital signs, laboratory results, imaging studies, and orders reviewed. Agree with plan of care as established by previous provider. Patient was seen briefly this afternoon when called to the bedside by nursing for complaint of muscle cramps. Patient states that he felt a muscle cramp to his left medial thigh; as it eased off, he began having a similar cramp to his right medial thigh. Currently he is comfortable. He does report improvement in his lower extremity edema. He denies dyspnea, orthopnea, cough. He was provided a one-time dose of Flexeril 5 mg with resolution of his discomfort. Repeat chemistry and magnesium level showed mildly worsened creatinine; now 1.61. Elevated magnesium to 2.4. Normal potassium. UDS is negative. Have asked nursing to begin strict I&O's.
--- NOTE | 2019-12-26 17:26 | EKG REPORT ---
SEVERITY:- ABNORMAL ECG - SINUS RHYTHM PROBABLE LEFT ATRIAL ABNORMALITY RIGHT AXIS DEVIATION INFERIOR Q WAVES, PROBABLY NORMAL VARIATION BORDERLINE T ABNORMALITIES, INFERIOR LEADS BORDERLINE PROLONGED QT INTERVAL : Confirmed by: Dodie Martinez MD 26-Dec-2019 17:25:16
--- NOTE | 2019-12-26 23:05 | RADIOLOGY REPORT (SQ) ---
RENAL ULTRASOUND: 12/26/2019 10:03 PM CDT HISTORY: 29-year old with chronic kidney disease. COMPARISON: None available TECHNIQUE: Limited sonographic evaluation of the kidneys was performed. FINDINGS: Both kidneys demonstrate diffusely increased cortical echogenicity. The right kidney measures 10.6 cm. The left kidney measures 10.0 cm. No hydronephrosis is noted in either kidney. No free intraperitoneal fluid is seen. The visualized portions of the urinary bladder appear grossly unremarkable. Bilateral ureteral jets were noted. The abdominal aorta and inferior vena cava are not well visualized. IMPRESSION: There is no evidence of hydronephrosis. Both kidneys demonstrate increased cortical echogenicity, suggestive of chronic medical renal disease.
[2019-12-27 06:03] LABS: ALBUMIN 3.7 g/dL (3.5-5.0); ALKALINE PHOSPHATASE 62 U/L (38-126); ANION GAP 6 (5-19); ASPARTATE AMINO TRANSFERASE 38 U/L (17-59); BILIRUBIN,TOTAL 1.1 mg/dL (0.2-1.3); BLOOD UREA NITROGEN 18 mg/dL (7-20); CALCIUM 9.3 mg/dL (8.4-10.2); CARBON DIOXIDE 30 mmol/L (22-30); CHLORIDE 103 mmol/L (98-107); GLUCOSE 102 mg/dL (75-110); POTASSIUM 4.3 mmol/L (3.6-5.0); TOTAL PROTEIN 6.5 g/dL (6.3-8.2)
[2019-12-27] MEDS: CARVEDILOL 3.125 MG TABLET PO SCH (10:48)
[2019-12-27] MEDS: APIXABAN 5 MG TABLET PO SCH (10:48)
[2019-12-27] MEDS: FAMOTIDINE 20 MG TABLET PO SCH (10:48)
[2019-12-27] MEDS: FUROSEMIDE INJ/PF 20 MG/2 ML SDV IV SCH (10:49)
[2019-12-27 10:56] VITALS: BP 136/94
[2019-12-27] MEDS: DOCUSATE SODIUM 100 MG/10 ML UDC PO SCH (11:21)
[2019-12-27] MEDS ORDERED: PROMETHAZINE HCL INJ 25 MG/1 ML VIAL IV PRN (13:30)
[2019-12-27] MEDS ORDERED: ONDANSETRON HCL INJ/PF 4 MG/2 ML SDV IV PRN (13:30)
--- NOTE | 2019-12-27 13:34 | PDOC DISCHARGE SUMMARY ---
Impression - Admit/DC Date/PCP Admission Date/Primary Care Provider: 12/26/19 06:[facility] Discharge Date: 12/27/19 - Additional Information Resuscitation Status: Full Code Discharge Diet: Cardiac Discharge Activity: Activity As Tolerated, Balance Activity w/Rest, Walk Frequently, Weigh Daily [facility]errals: [facility] [[facility]] - Follow up as needed Prescriptions: Carvedilol [Coreg 3.125 mg Tablet] 3.125 mg PO Q12 #60 tablet Furosemide [Lasix 40 mg Tablet] 40 mg PO QAM #30 tablet Home Medications: Apixaban [Eliquis 5 mg Tablet] 5 mg PO BID 12/26/19 Acetaminophen [Tylenol 325 mg Tablet] 325 mg PO Q4HP PRN tablet 12/27/19 Apixaban [Eliquis 5 mg Tablet] 5 mg PO BID tablet 12/27/19 Carvedilol [Coreg 3.125 mg Tablet] 3.125 mg PO Q12 #60 tablet 12/27/19 Furosemide [Lasix 40 mg Tablet] 40 mg PO QAM #30 tablet 12/27/19 History of Present Illiness History of Present Illness: Per H&P by Dr. Jack: TAYO JARVIS II is a 29 year old male past medical history of untreated hypertension, untreated CKD, untreated right heart failure, DVT, recurrent PE who is currently on 5 mg Eliquis p.o. twice daily, presenting to ED complaining of worsening of dyspnea on exertion, bilateral lower extremity swelling recently. Patient has tried elevating his legs multiple times in the past and the swelling has usually resolved, however this time it has remained persistent. Patient denies any orthopnea or paroxysmal nocturnal dyspnea however states that he cannot do much without getting short of breath. He denies any personal or family history of CAD, denies any history of recreational drug abuse. Denies any headache, vision changes, lightheadedness, palpitation, nausea, vomiting, chest pain, abdominal pain, diarrhea, constipation or any urinary symptoms. Patient reports compliant with his anticoagulants. Stating that he has an a ppointment with his enroute controller and he is also scheduled to have a 2D echo done. In ED a repeat CTA showed no acute pulmonary process, multiple chronic filling defects are seen, consistent with old recanalized thrombus. Hospital Course Hospital Course: The patient was admitted to the medical floor on continuous cardiac telemetry. He was started on carvedilol and initially with IV furosemide. He is now asymptomatic with clear lung sounds, maintaining oxygen saturations on room air, and complete resolution of his dependent edema. Cardiology was consulted; with Dr. Medeiros this morning. After discussion with Dr. Medeiros, it was presented to the patient that he was appropriate for discharge to home with outpatient follow-up as he had an outpatient echocardiogram already scheduled for later this week. The patient was agreeable, however, prior to discharge orders being placed the echocardiogram pictures were obtained. Patient states that he will provide a records release to his providers office that they can obtain the echocardiogram results. He was discharged home in stable condition. He is advised to take his medications as prescribed; carvedilol, furosemide, Eliquis. ER healthy diet. Weigh himself daily; report any weight gain of greater than 2 pounds overnight with provider. Keep establish appointments with enroute controller for later this week. Return to the emergency department as needed for concerning symptoms. Physical Exam Vital Signs: Temp Pulse Resp BP Pulse Ox 97.4 F 85 16 136/94 H 98 12/27/19 10:00 12/27/19 10:00 12/27/19 10:00 12/27/19 10:00 12/27/19 10:00 Intake & Output 12/26/19 12/27/19 12/28/19 06:59 06:59 06:59 Intake Total 2540 Output Total 2300 Balance 240 Weight 112.5 kg 105 kg General appearance: PRESENT: no acute distress, cooperative, well-developed, well-nourished Head exam: PRESENT: atraumatic, normocephalic Eye exam: PRESENT: conjunctiva pink, EOMI, PERRLA. ABSENT: scleral icterus Mouth exam: PRESENT: moist, tongue midline Respiratory exam: PRESENT: clear to auscultation eusebia, symmetrical, unlabored. ABSENT: rales, rhonchi, wheezes Cardiovascular exam: PRESENT: RRR, +S1, +S2, systolic murmur. ABSENT: diastolic murmur, rubs Pulses: PRESENT: normal dorsalis pedis pul Vascular exam: PRESENT: normal capillary refill Extremities exam: PRESENT: full ROM. ABSENT: calf tenderness, clubbing, pedal edema, +1 edema Musculoskeletal exam: PRESENT: ambulatory Neurological exam: PRESENT: alert, awake, oriented to person, oriented to place, oriented to time, oriented to situation, CN II-XII grossly intact. ABSENT: motor sensory deficit Psychiatric exam: PRESENT: appropriate affect, normal mood. ABSENT: homicidal ideation, suicidal ideation Skin exam: PRESENT: dry, intact, warm. ABSENT: cyanosis, rash Results Laboratory Results: WBC 6.0 10^3/uL (4.0-10.5) 12/26/19 00:50 RBC 5.54 10^6/uL (4.35-5.55) 12/26/19 00:50 Hgb 16.2 g/dL (13.5-17.0) 12/26/19 00:50 Hct 48.2 % (37.9-51.0) 12/26/19 00:50 MCV 87 fl (80-97) 12/26/19 00:50 MCH 29.2 pg (27.0-33.4) 12/26/19 00:50 MCHC 33.6 g/dL (32.0-36.0) 12/26/19 00:50 RDW 17.4 % (11.5-14.0) H 12/26/19 00:50 Plt Count 163 10^3/uL (150-450) 12/26/19 00:50 Lymph % (Auto) 43.8 % (13-45) 12/26/19 00:50 [place] % (Auto) 9.0 % (3-13) 12/26/19 00:50 Eos % (Auto) 5.4 % (0-6) 12/26/19 00:50 Baso % (Auto) 1.1 % (0-2) 12/26/19 00:50 Absolute Neuts (auto) 2.4 10^3/uL (1.7-8.2) 12/26/19 00:50 Absolute Lymphs (auto) 2.6 10^3/uL (0.5-4.7) 12/26/19 00:50 Absolute Monos (auto) 0.5 10^3/uL (0.1-1.4) 12/26/19 00:50 Absolute Eos (auto) 0.3 10^3/uL (0.0-0.6) 12/26/19 00:50 Absolute Basos (auto) 0.1 10^3/uL (0.0-0.2) 12/26/19 00:50 Seg Neutrophils % 40.7 % (42-78) L 12/26/19 00:50 PT 16.2 SEC (11.4-15.4) H 12/26/19 00:50 INR 1.29 12/26/19 00:50 Sodium 138.6 mmol/L (137-145) 12/27/19 04:55 Potassium 4.3 mmol/L (3.6-5.0) 12/27/19 04:55 Chloride 103 mmol/L (98-107) 12/27/19 04:55 Carbon Dioxide 30 mmol/L (22-30) 12/27/19 04:55 Anion Gap 6 (5-19) 12/27/19 04:55 BUN 18 mg/dL (7-20) 12/27/19 04:55 Creatinine 1.53 mg/dL (0.52-1.25) H 12/27/19 04:55 Est GFR ( Amer) > 60 (>60) 12/27/19 04:55 Est GFR (MDRD) Non-Af 54 (>60) L 12/27/19 04:55 Glucose 102 mg/dL (75-110) 12/27/19 04:55 Hemoglobin A1c % 6.0 % (4.7-6.0) 12/26/19 00:50 Calcium 9.3 mg/dL (8.4-10.2) 12/27/19 04:55 Phosphorus 5.0 mg/dL (2.5-4.5) H 12/27/19 04:55 Magnesium 2.2 mg/dL (1.6-2.3) 12/27/19 04:55 Total Bilirubin 1.1 mg/dL (0.2-1.3) 12/27/19 04:55 Direct Bilirubin 0.0 mg/dL (0.0-0.4) 12/27/19 04:55 Neonat Total Bilirubin Not Reportable 12/27/19 04:55 Neonat Direct Bilirubin Not Reportable 12/27/19 04:55 Neonat Indirect Bili Not Reportable 12/27/19 04:55 AST 38 U/L (17-59) 12/27/19 04:55 ALT 46 U/L (<50) 12/27/19 04:55 Alkaline Phosphatase 62 U/L (38-126) 12/27/19 04:55 Troponin I < 0.012 ng/mL 12/26/19 00:50 NT-Pro-B Natriuret Pep 4280 pg/mL (<125) H 12/26/19 00:50 Total Protein 6.5 g/dL (6.3-8.2) 12/27/19 04:55 Albumin 3.7 g/dL (3.5-5.0) 12/27/19 04:55 Triglycerides 111 mg/dL (<150) 12/26/19 00:50 Cholesterol 109.74 mg/dL (0-200) 12/26/19 00:50 LDL Cholesterol Direct 64 mg/dL (<100) 12/26/19 00:50 VLDL Cholesterol 22.0 mg/dL (10-31) 12/26/19 00:50 HDL Cholesterol 33 mg/dL (>40) L 12/26/19 00:50 TSH 1.35 uIU/mL (0.47-4.68) 12/26/19 00:50 Free T4 1.11 ng/dL (0.78-2.19) 12/26/19 00:50 Free T3 pg/mL Cancelled 12/26/19 00:50 Urine Color YELLOW 12/26/19 00:50 Urine Appearance CLEAR 12/26/19 00:50 Urine pH 6.0 (5.0-9.0) 12/26/19 00:50 Ur Specific [place] 1.026 12/26/19 00:50 Urine Protein 100 mg/dL (NEGATIVE) H 12/26/19 00:50 Urine Glucose (UA) NEGATIVE mg/dL (NEGATIVE) 12/26/19 00:50 Urine Ketones NEGATIVE mg/dL (NEGATIVE) 12/26/19 00:50 Urine Blood NEGATIVE (NEGATIVE) 12/26/19 00:50 Urine Nitrite NEGATIVE (NEGATIVE) 12/26/19 00:50 Urine Bilirubin NEGATIVE (NEGATIVE) 12/26/19 00:50 Urine Urobilinogen 4.0 mg/dL (<2.0) H 12/26/19 00:50 Ur Leukocyte Esterase NEGATIVE (NEGATIVE) 12/26/19 00:50 Urine WBC (Auto) 3 /HPF 12/26/19 00:50 Urine RBC (Auto) 2 /HPF 12/26/19 00:50 U Hyaline Cast (Auto) 5 /LPF 12/26/19 00:50 Urine Bacteria (Auto) TRACE /HPF 12/26/19 00:50 Urine Mucus (Auto) OCC /LPF 12/26/19 00:50 Urine Creatinine 8.5 mg/dL (24-392) L 12/26/19 07:00 Urine Total Protein 11.7 mg/dL (<12) 12/26/19 07:00 Urine Ascorbic Acid NEGATIVE (NEGATIVE) 12/26/19 00:50 Urine Opiates Screen NEGATIVE 12/26/19 07:00 Urine Methadone Screen NEGATIVE 12/26/19 07:00 Ur Barbiturates Screen NEGATIVE 12/26/19 07:00 Ur Phencyclidine Scrn NEGATIVE 12/26/19 07:00 Ur Amphetamines Screen NEGATIVE 12/26/19 07:00 U Benzodiazepines Scrn NEGATIVE 12/26/19 07:00 Urine Cocaine Screen NEGATIVE 12/26/19 07:00 U Marijuana (THC) Screen NEGATIVE 12/26/19 07:00 12/26/19 00:50 Troponin I < 0.012 NT-Pro-B Natriuret Pep 4280 H Impressions: Renal Ultrasound 12/26/19 00:00 IMPRESSION: There is no evidence of hydronephrosis. Both kidneys demonstrate increased cortical echogenicity, suggestive of chronic medical renal disease. Chest X-Ray 12/26/19 00:38 IMPRESSION: No evidence of active intrathoracic disease. Chronic change, no adverse change Chest/Abdomen CTA 12/26/19 00:38 IMPRESSION: No acute pulmonary process identified. 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 There is no adverse change. Improved aeration when compared to prior. . Plan Plan of Treatment: Patient is discharged home in stable condition. He is advised to follow-up with his primary care provider within 1 week. Keep his scheduled appointment with his enroute controller this week. Take medications as prescribed. Eat a heart healthy diet; low-sodium, low-fat. He is educated to weigh himself daily and report any weight gain of greater than 2 pounds overnight. Return to the emergency department as needed for concerning symptoms. Time Spent: Greater than 30 Minutes Stroke Is this a Stroke Patient?: No Acute Heart Failure - Is this a Heart Failure Patient?: Yes Documentation of LVEF assessment?: No, Document reason LVEF - Reason: Echo is pedning at time of dictation LVEF: LVEF Greater Than 40% - LVEF not known at time of discharge; echo has been completed but not yet read by cardiology Anticoagulant Therapy: Yes Discharged on Evidence-Based Beta Blockers: Yes Discharged on ARNI?: No-Document Contraindications Reason(s) not discharged on ARNI: New onset heart failure Discharged on ARB?: No-document contraindications Reason(s) not Discharged on ARB: Impaired/worsening renal functions Discharged on ACEI?: No, document contraindications Reason(s) not Discharged on ACEI: Impaied/worsening renal function Follow-up Appointment scheduled within 7 days?: Yes
--- NOTE | 2019-12-27 14:20 | PDOC CONSULTATION ---
Consultation Consult Date: 12/27/19 Provider Consulted: CLAUDIO WORTHINGTON Consult reason:: Congestive heart failure History of Present Illness Admission Date/PCP: 12/26/19 06:06 [facility] Patient complains of: Shortness of breath History of Present Illness: TAYO Barlow JARVIS II is a 29 year old male With the following active problems 1. Pulmonary embolism 2. Systemic anticoagulation 3. Right heart failure 4. Nicotine dependence 29-year-old male who reportedly had prior medical history of pulmonary embolism with subsequent episode of pulmonary embolism again at [facility] last year. At that time he received lytics and was transferred to [place]. There was evidence of RV strain. He was treated with heparin as well. His original episode of pulmonary embolism in 2015 was provoked post surgery. Patient is on established follow-up with pulmonary and apparently there was a request for transthoracic echocardiogram that was already made. Patient presented to the hospital with symptoms suggestive of congestive heart failure including dyspnea, orthopnea, PND and lower extremity edema which have responded to diuretic therapy. At the time of my evaluation patient feels much better from a symptomatic standpoint. Unfortunately patient continues to smoke cigarettes No familial illnesses reported. Past Medical History Cardiac Medical History: Reports: Congestive Heart Failure, DVT, Hypertension, Pulmonary Embolism GI Medical History: Reports: Gastroesophageal Reflux Disease Psychiatric Medical History: Denies: Depression Social History Smoking Status: Current Every Day Smoker Electronic Cigarette use?: No Drugs: None Family History Family History: Reviewed & Not Pertinent Parental Family History Reviewed: Yes - No familial illnesses Children Family History Reviewed: NA Sibling(s) Family History Reviewed.: NA Medication/Allergy Home Medications: Apixaban [Eliquis 5 mg Tablet] 5 mg PO BID 12/26/19 Acetaminophen [Tylenol 325 mg Tablet] 325 mg PO Q4HP PRN tablet 12/27/19 Apixaban [Eliquis 5 mg Tablet] 5 mg PO BID tablet 12/27/19 Carvedilol [Coreg 3.125 mg Tablet] 3.125 mg PO Q12 #60 tablet 12/27/19 Furosemide [Lasix 40 mg Tablet] 40 mg PO QAM #30 tablet 12/27/19 Allergies/Adverse Reactions: Penicillins Allergy (Verified 07/28/19 14:33) Review of Systems Constitutional: PRESENT: as per HPI Cardiovascular: PRESENT: dyspnea on exertion, edema, orthropnea Respiratory: PRESENT: dyspnea Physical Exam Vital Signs: Temp Pulse Resp BP Pulse Ox 97.4 F 85 16 123/87 H 98 12/27/19 07:46 12/27/19 09:11 12/27/19 09:11 12/27/19 07:46 12/27/19 09:11 Intake & Output 12/26/19 12/27/19 12/28/19 06:59 06:59 06:59 Intake Total 2540 Output Total 2300 Balance 240 Weight 112.5 kg 105 kg General appearance: PRESENT: no acute distress, cooperative Head exam: PRESENT: atraumatic, normocephalic Eye exam: PRESENT: conjunctiva pink, EOMI Mouth exam: PRESENT: moist Respiratory exam: PRESENT: clear to auscultation eusebia, symmetrical, unlabored Cardiovascular exam: PRESENT: RRR, +S1, +S2, systolic murmur - Pulmonic area and the second aortic area. No conduction GI/Abdominal exam: PRESENT: soft Rectal exam: PRESENT: deferred Extremities exam: PRESENT: pedal edema, other Musculoskeletal exam: PRESENT: normal inspection Skin exam: PRESENT: dry, intact, normal color Results Laboratory Results: 12/26/19 00:50 12/27/19 04:55 12/26/19 12/27/19 12:55 04:55 Sodium 138.7 138.6 Potassium 4.2 4.3 Chloride 104 103 Carbon Dioxide 27 30 Anion Gap 8 6 BUN 19 18 Creatinine 1.61 H 1.53 H Est GFR ( Amer) > 60 > 60 Glucose 90 102 Calcium 9.4 9.3 Phosphorus 5.0 H Magnesium 2.4 H 2.2 Total Bilirubin 1.1 AST 38 Alkaline Phosphatase 62 Total Protein 6.5 Albumin 3.7 12/26/19 00:50 Troponin I < 0.012 NT-Pro-B Natriuret Pep 4280 H EKG Comments: Telemetry Sinus rhythm 72 bpm Chest x-ray Chronic changes. No active intrathoracic disease CT chest abdomen 12/26/2019 Chronic changes in the lungs. Scarring of the right middle lobe. No evidence of acute pulmonary embolus. Pulmonary arterial hypertension thoracic aorta of normal caliber. Multiple chronic filling defects consistent with old recanalized thrombus. Hemoglobin 16.2 INR 1.29 Troponin negative x1 Twelve-lead EKG 12/26/2019. Independently reviewed by me. Sinus rhythm, 87 bpm, right axis deviation, left atrial abnormality, QTC is 472 ms nondiagnostic inferior Q waves Impressions: Renal Ultrasound 12/26/19 00:00 IMPRESSION: There is no evidence of hydronephrosis. Both kidneys demonstrate increased cortical echogenicity, suggestive of chronic medical renal disease. Chest X-Ray 12/26/19 00:38 IMPRESSION: No evidence of active intrathoracic disease. Chronic change, no adverse change Chest/Abdomen CTA 12/26/19 00:38 IMPRESSION: No acute pulmonary process identified. 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 There is no adverse change. Improved aeration when compared to prior. . Assessment & Plan - Diagnosis (1) CHF (congestive heart failure), NYHA class II Qualifiers: Congestive heart failure type: diastolic Congestive heart failure chronicity: acute on chronic Qualified Code(s): I50.33 - Acute on chronic diastolic (congestive) heart failure Is this a current diagnosis for this admission?: Yes Plan: Symptomatically much improved Can be discharged on oral medications. Patient already has echocardiogram scheduled. This can be followed up as an outpatient Salt and fluid restriction (2) HTN (hypertension) Qualifiers: Hypertension type: essential hypertension Qualified Code(s): I10 - Essential (primary) hypertension Is this a current diagnosis for this admission?: Yes Plan: Continue carvedilol 3.125 mg twice daily No added salt in the diet (3) History of pulmonary embolus (PE) Is this a current diagnosis for this admission?: Yes Plan: Multiple episodes of pulmonary embolism Continue systemic anticoagulation Tolerating this pretty well No bleeding reported Has appointment with pulmonary (4) Right heart failure due to pulmonary hypertension Is this a current diagnosis for this admission?: Yes Plan: Reported evidence of RV dysfunction. Repeat echocardiogram. This has been arranged.
--- NOTE | 2019-12-27 14:47 | XCELERA REPORT ---
[address] [address] Transthoracic Echocardiogram Report Name: TAYO JARVIS II Age: 29 yrs Gender: Male : 1990 Patient Status: Inpatient Patient Location: [facility]^A Study Date: 12/27/2019 09:09 AM History: PE CHF Height: 68 in Weight: 248 lb BSA: 2.2 m2 Procedure: A complete two-dimensional transthoracic echocardiogram was performed (2D, M-mode, spectral and color flow Doppler). The study was technically adequate with some images being suboptimal in quality. Reason For Study: acute CHF Previous Evaluation: No previous studies were available. History: HTN. PE. Ordering Physician: JEREL ELLIOTT Performed By: Interpretation Summary Left ventricular systolic function is low normal. The Ejection Fraction estimate is 50-55% The right ventricle is moderately dilated. The right ventricular systolic function is moderate to severely reduced. There is no aortic valve stenosis There is a mild amount of tricuspid regurgitation There is moderate to severe pulmonary hypertension by echo Minimal pericardial effusion. MMode/2D Measurements & Calculations RVDd: 3.7 cm LVIDd: 4.3 cm FS: 25.6 % Ao root diam: 2.8 cm IVSd: 1.1 cm LVIDs: 3.2 cm EDV(Teich): 81.4 ml Ao root area: 6.3 cm2 LVPWd: 1.3 cm ESV(Teich): 40.1 ml EF(Teich): 50.8 % Doppler Measurements & Calculations MV E max aquilino: MV dec slope: Ao V2 max: LV V1 max P.4 cm/sec 225.0 cm/sec2 95.4 cm/sec 2.7 mmHg MV A max aquilino: MV dec time: Ao max P.6 mmHgLV V1 max: 48.4 cm/sec 0.18 sec 82.2 cm/sec MV E/A: 0.81 MR max aquilino: PA V2 max: PI end-d aquilino: TR max aquilino: 418.4 cm/sec 68.2 cm/sec 214.2 cm/sec 379.2 cm/sec MR max PG: PA max P.9 mmHg TR max P.0 mmHg 59.1 mmHg Left Ventricle The left ventricle is grossly normal size. There is moderate concentric left ventricular hypertrophy. Left ventricular systolic function is low normal. The Ejection Fraction estimate is 50-55%. Doppler measurements suggest impaired left ventricular relaxation, which is associated with grade I/IV or mild diastolic dysfunction. Flattened septum is consistent with RV pressure/volume overload. Right Ventricle The right ventricle is moderately dilated. The right ventricular systolic function is moderate to severely reduced. Atria The right atrium is moderate to severely dilated. The left atrial size is normal. Mitral Valve The mitral valve is grossly normal. There is no mitral regurgitation noted. Aortic Valve The aortic valve is normal in structure and function. The aortic valve is trileaflet. The aortic valve opens well. There is no aortic valve stenosis. No aortic regurgitation is present. Tricuspid Valve The tricuspid valve is normal in structure and function. There is no tricuspid stenosis. There is a mild amount of tricuspid regurgitation. Best estimated RVSP is approximately 75-80 mm/Hg. There is moderate to severe pulmonary hypertension by echo. Pulmonic Valve The pulmonic valve is normal in structure and function. Great Vessels The aortic root is normal size. Effusions Minimal pericardial effusion. : JEREL ELLIOTT Anil
[2019-12-28] MEDS ORDERED: DOCUSATE SODIUM 100 MG CAPSULE PO SCH (10:00)
== END 2019-12-27 12:00 | disposition home or self-care (01) ==
LOC: ER 23:35 → EH 12-26 06:06 → 4N 12-26 07:24
PROVIDERS: ADMIT Internal Medicine; ATTEND Registered Nurse
DX: I13.0 Hypertensive heart and chronic kidney disease with heart failure and stage 1 through stage 4 chronic kidney disease, or unspecified chronic kidney disease (principal); I50.33 Acute on chronic diastolic (congestive) heart failure; N18.2 Chronic kidney disease, stage 2 (mild); I27.29 Other secondary pulmonary hypertension; E66.9 Obesity, unspecified; R25.2 Cramp and spasm; F17.210 Nicotine dependence, cigarettes, uncomplicated; Z68.39 Body mass index [BMI] 39.0-39.9, adult; Z86.718 Personal history of other venous thrombosis and embolism; Z79.01 Long term (current) use of anticoagulants; Z86.711 Personal history of pulmonary embolism
CPT/HCPCS: 93005; 99285; 96374; 36415 ×2; 84439; 83735 ×2; 84100; 84156; 84443; 82570; 85025; 85610; 80053 ×2; 81001; 84484; 80307; 83036; 80061; 83880; 93306; 71045; 76770; 71275; 93010; 94640; J1940 ×2